=== PATIENT | female | born 1960 | race American Indian/Alaskan Native ===

== ENCOUNTER 2018-02-04 21:43 | Observation (INO) | payer MEDICARE ==
[2018-02-04 22:46] LABS: Basophils % (Auto) 0.3 % (0.0-1.8); Eosinophils % (Auto) 0.1 % (0.0-4.3); Hematocrit 39.9 % (30.3-42.9); Lymphocytes # (Auto) 2.5 K/mm3 (1.2-5.4); Lymphocytes % (Auto) 23.7 % (13.4-35.0); Mean Corpuscular HGB Conc 33 % (30-34); Mean Corpuscular Hemoglobin 27 pg (28-32); Mean Corpuscular Volume 83 fl (79-97); Monocytes # (Auto) 0.8 K/mm3 (0.0-0.8); Monocytes % (Auto) 7.9 % (0.0-7.3); Platelet Count 173 K/mm3 (140-440); Red Blood Count 4.78 M/mm3 (3.65-5.03); Red Cell Distribution Width 14.9 % (13.2-15.2)
[2018-02-04 22:57] LABS: INR 0.92 (0.87-1.13); Partial Thromboplastin Time 30.2 Sec. (24.2-36.6)
[2018-02-04 23:02] LABS: BUN/Creatinine Ratio 8; Blood Urea Nitrogen 10 mg/dL (7-17); Calcium 9.3 mg/dL (8.4-10.2); Hemolysis Index 4
--- NOTE | 2018-02-04 23:16 | Cat Scan Report ---
FINAL REPORT EXAM: CT HEAD/BRAIN WO CON HISTORY: hypertenisive headache TECHNIQUE: CT head without contrast PRIORS: None. FINDINGS: No acute intra-axial or extra-axial hemorrhage is identified. There is no evidence of midline shift or mass effect. The ventricles and sulci are within normal limits. Noguera-white matter differentiation is intact. No acute parenchymal abnormalities seen. Bony calvarium is grossly intact. Visualized portions of the mastoids and paranasal sinuses are unremarkable. IMPRESSION: Negative CT head
--- NOTE | 2018-02-04 23:19 | XRay Report ---
FINAL REPORT EXAM: XR CHEST 1V AP HISTORY: Chest Pain TECHNIQUE: upright single view chest PRIORS: None. FINDINGS: Cardiac and mediastinal contours are unremarkable. No focal pulmonary infiltrate is identified. No pleural fluid collection seen. Pulmonary vasculature is unremarkable. IMPRESSION: Negative single-view chest
[2018-02-04] MEDS ORDERED: KEPPRA 500 MG/NS 0.82% 100 ML 500 MG/100 ML BAG IV ONE (23:41)
[2018-02-04] MEDS ORDERED: CARDENE 50 MG in NACL 0.9% 250ML 230 ML IV SCH (23:45)
--- NOTE | 2018-02-04 23:54 | History and Physical Report ---
History of Present Illness Date of examination: 02/05/18 History of present illness: 57-year-old woman with a history of hypertension, seizure, asthma comes emergency room because she felt dizzy, agitated, she knew that her blood pressure was high. Also complaining of chest pain in the epigastric area which she described as a dull sensation, intermittent in nature lasting l 1 minute, intensity 5/10, no radiation, cannot identify exacerbating or relieving factors. Admits to nausea, no shortness of breath, diaphoresis or palpitation. She had a stress test one year ago which was negative. Patient stated that she got some bad news today which helped to shoot her pressure out of control. Patient states she is compliant with medications Review of systems Constitutional: no weight loss, chills Ears, eyes, nose, mouth and throat: no nasal congestion, no nasal discharge, no sinus pressure, no vision change, no red eye. Neck: No neck pain or rigidity. Cardiovascular: no chest pain, palpitations Respiratory: No cough, shortness of breath Gastrointestinal: no abdominal pain, hematochezia Genitourinary : no dysuria, frequency , no hematuria Musculoskeletal: no joint swelling or muscle ache Integumentary: no rash, no pruritis Neurological: no parathesias, no numbness, no focal weakness Endocrine: no cold or heat intolerance, no polyuria or polydipsia Hematologic/Lymphatic: no easy bruising, no easy bleeding, no gland swelling Allergic/Immunologic: no urticaria, no angioedema. PAST MEDICAL HISTORY: hypertension, seizure, asthma PAST SURGICAL HISTORY: None SOCIAL HISTORY: Denies alcohol, tobacco, drugs FAMILY HISTORY: Hypertension Medications and Allergies Allergies Allergy/AdvReac Type Severity Reaction Status Date / Time Seafood Allergy Anaphylaxis Uncoded 02/04/18 22:14 Home Medications Medication Instructions Recorded Confirmed Last Taken Type Amlodipine Besylate [Norvasc] 10 mg PO DAILY 02/05/18 02/05/18 Unknown History Esomeprazole Magnesium [Nexium] 40 mg PO DAILY 02/05/18 02/05/18 Unknown History Losartan [Cozaar] 100 mg PO QDAY 02/05/18 02/05/18 Unknown History Montelukast Sodium 10 mg PO QHS 02/05/18 02/05/18 Unknown History Rosuvastatin Calcium [Crestor] 20 mg PO DAILY 02/05/18 02/05/18 Unknown History levETIRAcetam [Keppra TAB] 1,000 mg PO BID 02/05/18 02/05/18 Unknown History Active Meds: Active Medications Levetiracetam (Keppra 500 Mg/Ns 0.82% 100 Ml) 500 mg in 100 mls @ 400 mls/hr IV ONCE ONE Stop: 02/04/18 23:55 Nicardipine HCl 50 mg/ Sodium (Chloride) 250 mls @ 25 mls/hr IV TITR KEI; Protocol Exam - Physical Exam Narrative exam: Gen. appearance: Patient lying in bed, no apparent distress HEENT: Normocephalic, atraumatic, pupils equally round and reactive to light, extraocular movement intact, and no sclericterus,. No JVD or thyromegaly or nodule,neck supple, no carotid bruit ,mucous membranes moist, no exudate or erythema Heart: S1, S2, regular rate and rhythm Lungs: Clear to auscultation bilaterally, breathing comfortable Abdomen: Positive bowel sounds, nontender, nondistended, no organomegaly Extremity: No edema, cyanosis, clubbing Skin: No rash, nodules, warm, dry Neuro: Oriented 3, cranial nerves II-12 intact, speech is fluent, motor and sensory intact - Constitutional Vitals: Temp Pulse Resp BP Pulse Ox 99.1 F 87 20 211/131 99 02/04/18 22:07 02/04/18 22:10 02/04/18 22:14 02/04/18 22:10 02/04/18 22:14 Results - Labs CBC & Chem 7: 02/04/18 22:38 02/04/18 22:38 Labs: Abnormal lab results 02/04/18 02/04/18 Range/Units 22:38 22:38 MCH 27 L (28-32) pg Levy % (Auto) 7.9 H (0.0-7.3) % Potassium 3.4 L (3.6-5.0) mmol/L Glucose 102 H (65-100) mg/dL - Imaging and Cardiology EKG: image reviewed Chest x-ray: image reviewed CT Scan - head: report reviewed Assessment and Plan Assessment Hypertensive urgency Chest pain secondary to #1 Hypokalemia Plan Admit to medicine Continue Cardene drip Check cardiac enzymes, consult critical care, cardiology DVT prophylaxis, start aspirin, pain medication Replete potassium
--- NOTE | 2018-02-05 00:05 | Emergency Department Report ---
ED General Adult HPI - General Chief complaint: High BP Stated complaint: BOND,ELEV BP Time Seen by Provider: 02/04/18 22:11 Source: patient, EMS Mode of arrival: Stretcher Limitations: No Limitations - History of Present Illness Initial comments: Patient is a 57-year-old female past medical history of hypertension who is presenting with elevated blood pressure. Patient states that earlier today she says she just didn't feel right. Patient states she felt some chest discomfort or headache shortness of breath. Patient says that the chest discomfort was a tight sensation chest. There is no radiation. Patient denies any cough cold congestion and fevers chills nausea vomiting at this time. Patient assumed that she was about to have a seizure but did not. Patient takes Keppra for seizures. Patient states that she's been taking her blood pressure medicines however she missed 1 or 2 doses last several days. Patient did state that she did not take her blood pressure medicines today. Severity scale (0 -10): 7 - Related Data Allergies Allergy/AdvReac Type Severity Reaction Status Date / Time Seafood Allergy Anaphylaxis Uncoded 02/04/18 22:14 ED Review of Systems ROS: Stated complaint: BOND,ELEV BP Other details as noted in HPI Comment: All other systems reviewed and negative ED Past Medical Hx - Past Medical History Previous Medical History?: Yes Hx Hypertension: Yes Hx Seizures: Yes Hx Asthma: Yes - Surgical History Past Surgical History?: Yes Additional Surgical History: hysterectomy - Social History Smoking Status: Never Smoker ED Physical Exam - General Limitations: No Limitations General appearance: alert, in no apparent distress - Head Head exam: Present: atraumatic, normocephalic - Eye Eye exam: Present: normal appearance - ENT ENT exam: Present: mucous membranes moist - Neck Neck exam: Present: normal inspection - Respiratory Respiratory exam: Present: normal lung sounds bilaterally. Absent: respiratory distress - Cardiovascular Cardiovascular Exam: Present: regular rate, normal rhythm. Absent: systolic murmur, diastolic murmur, rubs, gallop - GI/Abdominal GI/Abdominal exam: Present: soft, normal bowel sounds - Extremities Exam Extremities exam: Present: normal inspection - Back Exam Back exam: Present: normal inspection - Neurological Exam Neurological exam: Present: alert, oriented X3 - Psychiatric Psychiatric exam: Present: normal affect, normal mood - Skin Skin exam: Present: warm, dry, intact, normal color. Absent: rash ED Course Vital Signs 02/04/18 02/04/18 02/04/18 21:54 21:56 22:00 Temperature Pulse Rate 93 H 91 H Respiratory 20 14 Rate Blood Pressure 216/137 O2 Sat by Pulse 98 97 Oximetry 02/04/18 02/04/18 02/04/18 22:06 22:07 22:10 Temperature 99.1 F Pulse Rate 91 H 87 87 Respiratory 24 20 16 Rate Blood Pressure 216/137 211/131 211/131 O2 Sat by Pulse 98 97 99 Oximetry 02/04/18 22:14 Temperature Pulse Rate Respiratory 20 Rate Blood Pressure O2 Sat by Pulse 99 Oximetry ED Medical Decision Making - Lab Data Result diagrams: 02/04/18 22:38 02/04/18 22:38 Lab Results 02/04/18 02/04/18 02/04/18 Range/Units 22:37 22:38 22:38 WBC 10.5 (4.5-11.0) K/mm3 RBC 4.78 (3.65-5.03) M/mm3 Hgb 13.0 (10.1-14.3) gm/dl Hct 39.9 (30.3-42.9) % MCV 83 (79-97) fl MCH 27 L (28-32) pg MCHC 33 (30-34) % RDW 14.9 (13.2-15.2) % Plt Count 173 (140-440) K/mm3 Lymph % (Auto) 23.7 (13.4-35.0) % [place] % (Auto) 7.9 H (0.0-7.3) % Eos % (Auto) 0.1 (0.0-4.3) % Baso % (Auto) 0.3 (0.0-1.8) % Lymph # 2.5 (1.2-5.4) K/mm3 [place] # 0.8 (0.0-0.8) K/mm3 Eos # 0.0 (0.0-0.4) K/mm3 Baso # 0.0 (0.0-0.1) K/mm3 Seg Neutrophils % 68.0 (40.0-70.0) % Seg Neutrophils # 7.1 (1.8-7.7) K/mm3 PT 12.8 (12.2-14.9) Sec. INR 0.92 (0.87-1.13) APTT 30.2 (24.2-36.6) Sec. Sodium 141 (137-145) mmol/L Potassium 3.4 L (3.6-5.0) mmol/L Chloride 102.5 (98-107) mmol/L Carbon Dioxide 25 (22-30) mmol/L Anion Gap 17 mmol/L BUN 10 (7-17) mg/dL Creatinine 1.2 (0.7-1.2) mg/dL Estimated GFR 46 ml/min BUN/Creatinine Ratio 8 % Glucose 102 H (65-100) mg/dL Calcium 9.3 (8.4-10.2) mg/dL Troponin T < 0.010 (0.00-0.029) ng/mL - EKG Data -: EKG Interpreted by Me - EKG Data Interpretation: other (EKG shows sinus rhythm at 68 and normal axis normal intervals there's LVH present is no ST segment elevation or depressions. Interpretation at [id number]) - Radiology Data Radiology results: report reviewed T of the head without contrast shows no acute process. X-ray of the chest shows no acute process. - Medical Decision Making Patient is a 57-year-old female who presented with chest discomfort headache and elevated blood pressure. Patient was given IV push dose of hydralazine which did not help the pressure. Patient was started on a Cardene drip. Patient is first cardiac enzymes within normal limits. Patient will be admitted to the hospitalist service and Dr. Benitez for serial enzymes and blood pressure control. Critical Care Time: Yes Critical care time in (mins) excluding proc time.: 30 Critical care attestation.: If time is entered above; I have spent that time in minutes in the direct care of this critically ill patient, excluding procedure time. ED Disposition Clinical Impression: Hypertensive urgency, malignant Chest pain Qualifiers: Chest pain type: unspecified Qualified Code(s): R07.9 - Chest pain, unspecified Disposition: OP ADMIT IP TO THIS HOSP Is pt being admited?: Yes Does the pt Need Aspirin: No Condition: Stable Instructions: Chest Pain (ED) Referrals: PRIMARY CARE, [Primary Care Provider] - 3-5 Days
[2018-02-05] MEDS ORDERED: SODIUM CHLORIDE FLUSH SYRINGE 10 ML IV PRN (00:19)
[2018-02-05] MEDS ORDERED: PERCOCET 5/325 PO PRN (00:19)
[2018-02-05] MEDS ORDERED: TYLENOL PO PRN (00:19)
[2018-02-05] MEDS ORDERED: ZOFRAN IV PRN (00:19)
[2018-02-05] MEDS ORDERED: K-DUR PO ONE ×2 (00:54→01:05)
[2018-02-05 01:37] LABS: Creatine Kinase MB 1.5 ng/mL (0.0-4.0)
--- NOTE | 2018-02-05 06:37 | Consultation ---
History of Present Illness Consult date: 02/05/18 Requesting physician: ALIN RAY History of present illness: 57-year-old woman with a history of hypertension, seizure, asthma comes emergency room because she felt dizzy, agitated, she knew that her blood pressure was high. Also complaining of chest pain in the epigastric area which she described as a dull sensation, intermittent in nature lasting l 1 minute, intensity 5/10, no radiation, cannot identify exacerbating or relieving factors. Admits to nausea, no shortness of breath, diaphoresis or palpitation. She had a stress test one year ago which was negative. Patient stated that she got some bad news today and she did not take her blood pressure medications today however she states she is generally compliant with medications. At presentation to the ED her BP was 216/137. She was started on an infusion for blood pressure control and has been admitted to the ICU for hemodynamic monitoring, blood pressure control and titration of nicardipine infusion. I have been consulted for critical care management. Patient was seen and examined. Vitals, labs, medications, chart and imaging were reviewed. Review of systems Constitutional: no weight loss, chills Ears, eyes, nose, mouth and throat: no nasal congestion, no nasal discharge, no sinus pressure, no vision change, no red eye. Neck: No neck pain or rigidity. Cardiovascular: no chest pain, palpitations Respiratory: No cough, shortness of breath Gastrointestinal: no abdominal pain, hematochezia Genitourinary : no dysuria, frequency , no hematuria Musculoskeletal: no joint swelling or muscle ache Integumentary: no rash, no pruritis Neurological: no parathesias, no numbness, no focal weakness Endocrine: no cold or heat intolerance, no polyuria or polydipsia Hematologic/Lymphatic: no easy bruising, no easy bleeding, no gland swelling Allergic/Immunologic: no urticaria, no angioedema. PAST MEDICAL HISTORY: hypertension, seizure, asthma PAST SURGICAL HISTORY: None SOCIAL HISTORY: Denies alcohol, tobacco, drugs FAMILY HISTORY: Hypertension Medications and Allergies Allergies Allergy/AdvReac Type Severity Reaction Status Date / Time Seafood Allergy Anaphylaxis Uncoded 02/04/18 22:14 Home Medications Medication Instructions Recorded Confirmed Last Taken Type Amlodipine Besylate [Norvasc] 10 mg PO DAILY 02/05/18 02/05/18 Unknown History Esomeprazole Magnesium [Nexium] 40 mg PO DAILY 02/05/18 02/05/18 Unknown History Losartan [Cozaar] 100 mg PO QDAY 02/05/18 02/05/18 Unknown History Montelukast Sodium 10 mg PO QHS 02/05/18 02/05/18 Unknown History Rosuvastatin Calcium [Crestor] 20 mg PO DAILY 02/05/18 02/05/18 Unknown History levETIRAcetam [Keppra TAB] 1,000 mg PO BID 02/05/18 02/05/18 Unknown History Active Meds: Active Medications Acetaminophen (Tylenol) 650 mg PO Q4H PRN PRN Reason: Pain MILD(1-3)/Fever >100.5/BOND Enoxaparin Sodium (Lovenox) 40 mg SUB-Q QDAY@1000 KEI Nicardipine HCl 50 mg/ Sodium (Chloride) 250 mls @ 25 mls/hr IV TITR KEI; Protocol Last Titration: 02/05/18 01:46 Dose: 10 mg/hr, 50 mls/hr Ondansetron HCl (Zofran) 4 mg IV Q8H PRN PRN Reason: Nausea And Vomiting Oxycodone/Acetaminophen (Percocet 5/325) 1 tab PO Q6H PRN PRN Reason: Pain, Moderate (4-6) Sodium Chloride (Sodium Chloride Flush Syringe 10 Ml) 10 ml IV BID KEI Sodium Chloride (Sodium Chloride Flush Syringe 10 Ml) 10 ml IV PRN PRN PRN Reason: LINE FLUSH Physical Examination Vital signs: Vital Signs Pulse Ox 98 02/04/18 21:54 Gen. appearance: Patient lying in bed, no apparent distress HEENT: Normocephalic, atraumatic, pupils equally round and reactive to light, extraocular movement intact, and no sclericterus,. No JVD or thyromegaly or nodule,neck supple, no carotid bruit ,mucous membranes moist, no exudate or erythema Heart: S1, S2, regular rate and rhythm Lungs: Clear to auscultation bilaterally, breathing comfortable Abdomen: Positive bowel sounds, nontender, nondistended, no organomegaly Extremity: No edema, cyanosis, clubbing Skin: No rash, nodules, warm, dry Neuro: Oriented 3, cranial nerves II-12 intact, speech is fluent, motor and sensory intact Results - Laboratory Findings CBC and BMP: 02/04/18 22:38 02/04/18 22:38 PT/INR, D-dimer PT 12.8 Sec. (12.2-14.9) 02/04/18 22:37 INR 0.92 (0.87-1.13) 02/04/18 22:37 Abnormal lab findings: Abnormal Labs 02/04/18 02/04/18 22:38 22:38 MCH 27 L [place] % (Auto) 7.9 H Potassium 3.4 L Glucose 102 H Assessment and Plan Malignant hypertension Chest pain -Admit ICU -Continue nicardipine infusion Serial troponins and EKG 2D echocardiogram VTE prophylaxis Resume oral antihypertensives and wean off nicardipine infusion Educated and counselled on the need for medical compliance.
[2018-02-05 06:42] LABS: Creatine Kinase MB 2.2 ng/mL (0.0-4.0)
--- NOTE | 2018-02-05 09:15 | Consultation ---
<YENI BAUGH - Last Filed: 02/05/18 09:25> History of Present Illness Consult date: 02/05/18 Requesting physician: ALIN RAY Consult reason: chest pain History of present illness: The pt is a 57 YO female with a past medical history significant for HTN, HLP, seizure disorder and asthma. She is previously unknown to our practice. She presented with complaints of dizziness, nausea and chest pain. She reports that she was having a disagreement with her daughter yesterday when she noted the onset of her symptoms and could tell that her blood pressure was high. She describes her chest pain as a constant, nonexertional, nonradiating midsternal pressure. Following arrival in ED, her BPs were noted to be significantly elevated and she was placed on cardene gtt. She reports that following initiation of cardene gtt, her chest pain resolved. She reports that she usually experiences these symptoms when her BPs are high. She denies any SOB, palpitations, vomiting, diaphoresis or syncope. She denies any prior cardiac issues. She reports that she underwent stress testing and echo at [facility] in 10/2017 for the same symptoms and these tests were normal to her knowledge. Past History Past Medical History: hypertension, hyperlipidemia, seizures Past Surgical History: No surgical history Social history: lives with family. denies: smoking, alcohol abuse, prescription drug abuse Medications and Allergies Allergies Allergy/AdvReac Type Severity Reaction Status Date / Time Seafood Allergy Anaphylaxis Uncoded 02/04/18 22:14 Home Medications Medication Instructions Recorded Confirmed Last Taken Type Amlodipine Besylate [Norvasc] 10 mg PO DAILY 02/05/18 02/05/18 Unknown History Esomeprazole Magnesium [Nexium] 40 mg PO DAILY 02/05/18 02/05/18 Unknown History Losartan [Cozaar] 100 mg PO QDAY 02/05/18 02/05/18 Unknown History Montelukast Sodium 10 mg PO QHS 02/05/18 02/05/18 Unknown History Rosuvastatin Calcium [Crestor] 20 mg PO DAILY 02/05/18 02/05/18 Unknown History levETIRAcetam [Keppra TAB] 1,000 mg PO BID 02/05/18 02/05/18 Unknown History Active Meds: Active Medications Acetaminophen (Tylenol) 650 mg PO Q4H PRN PRN Reason: Pain MILD(1-3)/Fever >100.5/BOND Enoxaparin Sodium (Lovenox) 40 mg SUB-Q QDAY@1000 KEI Nicardipine HCl 50 mg/ Sodium (Chloride) 250 mls @ 25 mls/hr IV TITR KEI; Protocol Last Titration: 02/05/18 05:30 Dose: 0 mg/hr, 0 mls/hr Ondansetron HCl (Zofran) 4 mg IV Q8H PRN PRN Reason: Nausea And Vomiting Oxycodone/Acetaminophen (Percocet 5/325) 1 tab PO Q6H PRN PRN Reason: Pain, Moderate (4-6) Sodium Chloride (Sodium Chloride Flush Syringe 10 Ml) 10 ml IV BID KEI Sodium Chloride (Sodium Chloride Flush Syringe 10 Ml) 10 ml IV PRN PRN PRN Reason: LINE FLUSH Review of Systems Constitutional: no weight loss, no weight gain, no fever, no chills Ears, nose, mouth and throat: no ear pain, no nose pain, no sinus pressure, no sinus pain Cardiovascular: chest pain, lightheadedness, high blood pressure, no orthopnea, no palpitations, no rapid/irregular heart beat, no edema, no syncope, no shortness of breath, no dyspnea on exertion, no paroxysmal nocturnal dyspnea, no leg edema Respiratory: no cough, no shortness of breath, no dyspnea on exertion, no congestion, no wheezing, no pain on inspiration Gastrointestinal: nausea, no abdominal pain, no vomiting, no diarrhea, no constipation, no change in bowel habits Genitourinary Female: no pelvic pain, no flank pain, no dysuria, no urinary frequency, no urgency Musculoskeletal: no neck stiffness, no neck pain, no shooting arm pain, no arm numbness/tingling, no low back pain, no shooting leg pain, no leg numbness/ tingling, no redness of joints Integumentary: no rash, no pruritis, no redness, no sores, no wounds Neurological: seizures (last seizure was 1 month ago ), no head injury, no paralysis, no weakness, no parathesias, no numbness, no tingling, no syncope Psychiatric: no anxiety Endocrine: no cold intolerance, no heat intolerance Hematologic/Lymphatic: no easy bruising, no easy bleeding, no lymphadenopathy Allergic/Immunologic: no urticaria, no wheezing, no persistent infections Physical Examination Vital Signs Pulse Ox 98 02/04/18 21:54 General appearance: no acute distress HEENT: Positive: PERRL, Normocephaly, Mucus Membranes Moist Neck: Positive: neck supple, trachea midline Cardiac: Positive: Reg Rate and Rhythm, S1/S2 Lungs: Positive: clear to auscultation Neuro: Positive: Grossly Intact, Cranial Nerve 2-12 Intact Abdomen: Positive: Soft. Negative: Tender Skin: Positive: Clear. Negative: Rash, Wound Musculoskeletal: No Fluid Collection, No Pain, Normal Range of Motion Extremities: Absent: edema Results 02/04/18 22:38 02/04/18 22:38 Cardiac Enzymes 02/05/18 02/05/18 Range/Units 00:57 05:11 CK-MB (CK-2) 1.5 2.2 (0.0-4.0) ng/mL Coagulation 02/04/18 Range/Units 22:37 PT 12.8 (12.2-14.9) Sec. INR 0.92 (0.87-1.13) APTT 30.2 (24.2-36.6) Sec. CBC 02/04/18 Range/Units 22:38 WBC 10.5 (4.5-11.0) K/mm3 RBC 4.78 (3.65-5.03) M/mm3 Hgb 13.0 (10.1-14.3) gm/dl Hct 39.9 (30.3-42.9) % Plt Count 173 (140-440) K/mm3 Lymph # 2.5 (1.2-5.4) K/mm3 [place] # 0.8 (0.0-0.8) K/mm3 Eos # 0.0 (0.0-0.4) K/mm3 Baso # 0.0 (0.0-0.1) K/mm3 Comprehensive Metabolic Panel 02/04/18 Range/Units 22:38 Sodium 141 (137-145) mmol/L Potassium 3.4 L (3.6-5.0) mmol/L Chloride 102.5 (98-107) mmol/L Carbon Dioxide 25 (22-30) mmol/L BUN 10 (7-17) mg/dL Creatinine 1.2 (0.7-1.2) mg/dL Glucose 102 H (65-100) mg/dL Calcium 9.3 (8.4-10.2) mg/dL - Imaging and Cardiology EKG: report reviewed, image reviewed EKG interpretations - Telemetry EKG Rhythm: Sinus Rhythm - EKG Sinus rhythms and dysrhythmias: sinus rhythm Chamber hypertrophy or enlargement: left ventricular hypertro Repolarization changes or abnormalities: early repolarization due to LVH Assessment and Plan Assessment: Chest pain, atypical - ECG with no acute ischemic changes; Liz negative for AMI ; currently resolved Hypertensive urgency - improving Dizziness - resolved HLP Seizure disorder - last seizure 1 month ago per pt report; cont Keppra Hypokalemia H/o asthma Plan: Resume home anti-hypertensive regimen, including amlodipine 10mg daily and losartan 100mg daily. Request medical records from [facility] - pt reports that she underwent stress testing and echo at [facility] in 10/2017 and these tests were normal to her knowledge. Repeat BMP. Currently stable cardiac status. Cardene gtt weaned off. Pt may tx out of ICU to telemetry from cardiology standpoint. The patient has been seen in conjunction with Dr. Jimenez who agrees with the assessment and plan of care. <SOL JIMENEZ M - Last Filed: 02/05/18 09:35> Medications and Allergies Active Meds: Active Medications Acetaminophen (Tylenol) 650 mg PO Q4H PRN PRN Reason: Pain MILD(1-3)/Fever >100.5/BOND Amlodipine Besylate (Norvasc) 10 mg PO DAILY KEI Enoxaparin Sodium (Lovenox) 40 mg SUB-Q QDAY@1000 KEI Losartan Potassium (Cozaar) 100 mg PO QDAY KEI Ondansetron HCl (Zofran) 4 mg IV Q8H PRN PRN Reason: Nausea And Vomiting Oxycodone/Acetaminophen (Percocet 5/325) 1 tab PO Q6H PRN PRN Reason: Pain, Moderate (4-6) Sodium Chloride (Sodium Chloride Flush Syringe 10 Ml) 10 ml IV BID KEI Sodium Chloride (Sodium Chloride Flush Syringe 10 Ml) 10 ml IV PRN PRN PRN Reason: LINE FLUSH Physical Examination Vital Signs Pulse Ox 98 02/04/18 21:54 Results 02/04/18 22:38 02/04/18 22:38 Cardiac Enzymes 02/05/18 02/05/18 Range/Units 00:57 05:11 CK-MB (CK-2) 1.5 2.2 (0.0-4.0) ng/mL Coagulation 02/04/18 Range/Units 22:37 PT 12.8 (12.2-14.9) Sec. INR 0.92 (0.87-1.13) APTT 30.2 (24.2-36.6) Sec. CBC 02/04/18 Range/Units 22:38 WBC 10.5 (4.5-11.0) K/mm3 RBC 4.78 (3.65-5.03) M/mm3 Hgb 13.0 (10.1-14.3) gm/dl Hct 39.9 (30.3-42.9) % Plt Count 173 (140-440) K/mm3 Lymph # 2.5 (1.2-5.4) K/mm3 [place] # 0.8 (0.0-0.8) K/mm3 Eos # 0.0 (0.0-0.4) K/mm3 Baso # 0.0 (0.0-0.1) K/mm3 Comprehensive Metabolic Panel 02/04/18 Range/Units 22:38 Sodium 141 (137-145) mmol/L Potassium 3.4 L (3.6-5.0) mmol/L Chloride 102.5 (98-107) mmol/L Carbon Dioxide 25 (22-30) mmol/L BUN 10 (7-17) mg/dL Creatinine 1.2 (0.7-1.2) mg/dL Glucose 102 H (65-100) mg/dL Calcium 9.3 (8.4-10.2) mg/dL Assessment and Plan Add K+ sparing diuretic to medication regimen
[2018-02-05] MEDS ORDERED: LOVENOX SUB-Q SCH (10:00)
[2018-02-05 11:21] LABS: BUN/Creatinine Ratio 10; Blood Urea Nitrogen 9 mg/dL (7-17); Calcium 9.6 mg/dL (8.4-10.2); Hemolysis Index 16
[2018-02-05] MEDS: LOVENOX SUB-Q SCH (15:31)
[2018-02-05] MEDS: NORVASC PO SCH (15:32)
[2018-02-05] MEDS: COZAAR PO SCH (15:32)
[2018-02-05] MEDS: MAXZIDE-25 PO SCH (15:33)
[2018-02-05] MEDS: SODIUM CHLORIDE FLUSH SYRINGE 10 ML IV SCH ×2 (15:34→23:31)
--- NOTE | 2018-02-05 17:03 | Progress Note ---
Assessment and Plan Hypertensive urgency--Improved Chest pain secondary to #1 Hypokalemia---Supplemented Plan Cardene drip--D/c'd Antihypertensives optimized cardiac enzymes Negative, critical care and cardiology consult appreciated DVT prophylaxis, start aspirin, pain medication Replete potassium Subjective Date of service: 02/05/18 Principal diagnosis: Hypertensive Emergency Interval history: Doing well No Chest pain Objective - Constitutional Vitals: Vital Signs - 12hr 02/05/18 02/05/18 02/05/18 05:10 05:20 05:30 Temperature Pulse Rate 89 79 78 Respiratory 19 11 L 13 Rate Blood Pressure 124/79 124/79 122/78 O2 Sat by Pulse 95 92 88 Oximetry 02/05/18 02/05/18 02/05/18 05:40 05:50 06:00 Temperature Pulse Rate 75 91 H 76 Respiratory 16 17 17 Rate Blood Pressure 122/78 119/70 110/74 O2 Sat by Pulse 95 97 Oximetry 02/05/18 02/05/18 02/05/18 06:10 06:20 06:30 Temperature Pulse Rate 82 77 75 Respiratory 17 17 17 Rate Blood Pressure 110/74 114/74 121/88 O2 Sat by Pulse 93 94 93 Oximetry 02/05/18 02/05/18 02/05/18 06:40 06:50 07:00 Temperature Pulse Rate 76 77 73 Respiratory 16 20 18 Rate Blood Pressure 121/88 148/90 137/90 O2 Sat by Pulse 94 90 90 Oximetry 02/05/18 02/05/18 02/05/18 07:10 07:20 07:30 Temperature Pulse Rate 68 63 66 Respiratory 15 16 16 Rate Blood Pressure 137/90 137/90 139/92 O2 Sat by Pulse 96 93 93 Oximetry 02/05/18 02/05/18 02/05/18 07:40 07:50 08:00 Temperature 97.8 F Pulse Rate 63 57 L 56 L Respiratory 18 16 15 Rate Blood Pressure 139/92 139/92 134/77 O2 Sat by Pulse 97 96 95 Oximetry 02/05/18 02/05/18 02/05/18 08:10 08:20 08:30 Temperature Pulse Rate 56 L 73 63 Respiratory 16 17 20 Rate Blood Pressure 134/77 134/77 134/77 O2 Sat by Pulse 96 97 97 Oximetry 05/15/18 05/15/18 05/15/18 08:40 08:50 09:00 Temperature Pulse Rate 58 L 60 76 Respiratory 18 15 13 Rate Blood Pressure 156/90 156/90 135/111 O2 Sat by Pulse 96 96 96 Oximetry 02/05/18 02/05/18 02/05/18 09:10 09:20 09:32 Temperature Pulse Rate 62 70 Respiratory 17 17 Rate Blood Pressure 135/111 135/111 157/109 O2 Sat by Pulse 96 95 Oximetry 02/05/18 02/05/18 02/05/18 09:40 09:50 10:00 Temperature Pulse Rate Respiratory Rate Blood Pressure 157/109 157/109 135/111 O2 Sat by Pulse 94 93 Oximetry 02/05/18 02/05/18 02/05/18 10:10 10:20 10:30 Temperature Pulse Rate Respiratory Rate Blood Pressure 161/102 161/102 161/102 O2 Sat by Pulse 95 95 93 Oximetry 02/05/18 02/05/18 02/05/18 10:37 10:40 10:50 Temperature Pulse Rate 65 Respiratory 9 L Rate Blood Pressure 176/102 176/102 O2 Sat by Pulse 99 98 93 Oximetry 02/05/18 02/05/18 02/05/18 11:00 11:10 11:20 Temperature Pulse Rate 62 71 61 Respiratory 12 18 14 Rate Blood Pressure 176/108 176/108 176/108 O2 Sat by Pulse 93 95 97 Oximetry 02/05/18 02/05/18 02/05/18 11:30 11:40 11:50 Temperature Pulse Rate 56 L 56 L 72 Respiratory 14 13 11 L Rate Blood Pressure 176/108 158/91 158/91 O2 Sat by Pulse 95 95 96 Oximetry 02/05/18 02/05/18 02/05/18 12:00 12:10 12:20 Temperature 98.0 F Pulse Rate 63 73 57 L Respiratory 18 17 14 Rate Blood Pressure 158/100 158/100 158/100 O2 Sat by Pulse 92 91 94 Oximetry 02/05/18 02/05/18 02/05/18 12:30 12:40 12:50 Temperature Pulse Rate 60 58 L 55 L Respiratory 11 L 15 15 Rate Blood Pressure 150/99 150/99 150/99 O2 Sat by Pulse 92 90 93 Oximetry 02/05/18 02/05/18 02/05/18 13:00 13:10 13:20 Temperature Pulse Rate 68 72 67 Respiratory 15 14 15 Rate Blood Pressure 153/96 153/96 153/96 O2 Sat by Pulse 91 89 Oximetry 02/05/18 02/05/18 02/05/18 13:30 13:40 13:50 Temperature Pulse Rate 60 55 L 60 Respiratory 17 9 L 12 Rate Blood Pressure 166/101 166/101 166/101 O2 Sat by Pulse 96 98 95 Oximetry 02/05/18 02/05/18 02/05/18 14:00 14:10 14:20 Temperature Pulse Rate 65 61 68 Respiratory 10 L 18 19 Rate Blood Pressure 172/105 166/101 172/105 O2 Sat by Pulse 76 L 93 74 L Oximetry 02/05/18 02/05/18 02/05/18 14:31 14:41 14:51 Temperature Pulse Rate 75 59 L 59 L Respiratory 17 14 8 L Rate Blood Pressure 168/96 168/96 168/96 O2 Sat by Pulse 86 96 92 Oximetry 02/05/18 02/05/18 02/05/18 15:01 15:11 15:21 Temperature Pulse Rate 51 L 51 L 51 L Respiratory 15 11 L 11 L Rate Blood Pressure 172/88 172/88 172/88 O2 Sat by Pulse 95 96 98 Oximetry 02/05/18 02/05/18 15:32 15:56 Temperature 97.7 F Pulse Rate 51 L Respiratory Rate Blood Pressure 172/88 O2 Sat by Pulse Oximetry General appearance: Present: no acute distress, well-nourished - EENT Eyes: PERRL, EOM intact ENT: hearing intact, clear oral mucosa Ears: bilateral: normal - Neck Neck: supple, normal ROM - Respiratory Respiratory effort: normal Respiratory: bilateral: CTA - Breasts Breasts: normal - Cardiovascular Rhythm: regular Heart Sounds: Present: S1 & S2. Absent: gallop, rub Extremities: no ischemia, pulses intact, No edema, normal color, Full ROM - Gastrointestinal General gastrointestinal: Present: soft, non-tender, non-distended, normal bowel sounds - Genitourinary Female genitourinary: normal - Integumentary Integumentary: clear, warm, dry - Musculoskeletal Musculoskeletal: 1, strength equal bilaterally - Neurologic Neurologic: moves all extremities - Psychiatric Psychiatric: memory intact, appropriate mood/affect, intact judgment & insight - Labs CBC & Chem 7: 02/06/18 05:06 02/06/18 05:06 Labs: Abnormal lab results 02/04/18 02/04/18 Range/Units 22:38 22:38 MCH 27 L (28-32) pg [place] % (Auto) 7.9 H (0.0-7.3) % Potassium 3.4 L (3.6-5.0) mmol/L Glucose 102 H (65-100) mg/dL
[2018-02-05] MEDS ORDERED: APRESOLINE PO PRN (21:44)
[2018-02-05] MEDS: APRESOLINE IV PRN (23:31)
[2018-02-06 06:00] LABS: Basophils % (Auto) 0.3 % (0.0-1.8); Eosinophils % (Auto) 0.1 % (0.0-4.3); Hematocrit 40.5 % (30.3-42.9); Hemoglobin 13.7 gm/dl (10.1-14.3); Lymphocytes # (Auto) 1.6 K/mm3 (1.2-5.4); Lymphocytes % (Auto) 16.7 % (13.4-35.0); Mean Corpuscular HGB Conc 34 % (30-34); Mean Corpuscular Hemoglobin 28 pg (28-32); Mean Corpuscular Volume 83 fl (79-97); Monocytes # (Auto) 0.7 K/mm3 (0.0-0.8); Platelet Count 181 K/mm3 (140-440); Red Blood Count 4.88 M/mm3 (3.65-5.03); Red Cell Distribution Width 15.1 % (13.2-15.2)
[2018-02-06 06:06] LABS: Calcium 9.6 mg/dL (8.4-10.2)
--- NOTE | 2018-02-06 09:15 | Progress Note ---
Assessment and Plan Chest pain, atypical Hypertensive urgency - improved Dizziness - resolved Sinus bradycardia - asymptomatic HLP Seizure disorder Hypokalemia H/o asthma -Educated and counselled on the need for medical compliance. -Continue with antihypertensives -continue with keppra for seizure disorder -weight loss and lifestyle modifications discussed. -Discharge planning Subjective Date of service: 02/06/18 Principal diagnosis: Hypertensive urgency, atypical chest pain, sizure disorder Interval history: Seen and examined. Vitals, labs, medications, chart reviewed. No acute overnight events. Denies any headaches, no chest pain, no fevers or chills. No nausea or vomiting. No seizures or aura. States she feels much better Objective - Exam Narrative Exam: Gen. appearance: Patient lying in bed, no apparent distress HEENT: Normocephalic, atraumatic, pupils equally round and reactive to light, extraocular movement intact, and no sclericterus,. No JVD or thyromegaly or nodule,neck supple, no carotid bruit ,mucous membranes moist, no exudate or erythema Heart: S1, S2, regular rate and rhythm Lungs: Clear to auscultation bilaterally, breathing comfortable Abdomen: Positive bowel sounds, nontender, nondistended, no organomegaly Extremity: No edema, cyanosis, clubbing Skin: No rash, nodules, warm, dry Neuro: Oriented 3, cranial nerves II-12 intact, speech is fluent, motor and sensory intact Vital Signs - 12hr 02/05/18 02/05/18 02/05/18 21:16 21:19 22:00 Temperature 98.5 F 98.5 F Pulse Rate 59 L 50 L Respiratory 20 20 Rate Blood Pressure 209/111 194/97 Blood Pressure [Right] O2 Sat by Pulse 95 Oximetry 02/05/18 02/05/18 02/06/18 23:31 23:32 00:14 Temperature 98.1 F Pulse Rate 60 96 H Respiratory 20 18 Rate Blood Pressure 209/111 162/98 Blood Pressure [Right] O2 Sat by Pulse 97 Oximetry 02/06/18 02/06/18 02/06/18 05:12 07:43 08:24 Temperature 97.9 F 97.6 F 97.6 F Pulse Rate 69 80 88 Respiratory 18 18 18 Rate Blood Pressure 145/87 123/83 Blood Pressure 123/83 [Right] O2 Sat by Pulse 97 98 98 Oximetry Constitutional: no acute distress Eyes: non-icteric ENT: oropharynx moist Neck: supple, no lymphadenopathy, no JVD Effort: normal Ascultation: Bilateral: clear Cardiovascular: regular rate and rhythm Gastrointestinal: normoactive bowel sounds, soft, non-tender, non-distended Integumentary: normal Extremities: no cyanosis, no edema, pulses normal, no ischemia or petechiae Neurologic: normal mental status, non-focal exam, pupils equal and round, CN II- XII normal, motor strength normal and Psychiatric: mood appropriate, affect normal CBC and BMP: 02/06/18 05:06 02/06/18 05:06 ABG, PT/INR, D-dimer: PT/INR, D-dimer PT 12.8 Sec. (12.2-14.9) 02/04/18 22:37 INR 0.92 (0.87-1.13) 02/04/18 22:37 Abnormal lab findings: Abnormal Labs 02/04/18 02/04/18 02/06/18 22:38 22:38 05:06 MCH 27 L [place] % (Auto) 7.9 H Seg Neutrophils % 75.9 H Potassium 3.4 L BUN Creatinine Glucose 102 H 02/06/18 05:06 MCH [place] % (Auto) Seg Neutrophils % Potassium BUN 18 H Creatinine 1.3 H Glucose
[2018-02-06] MEDS: LOVENOX SUB-Q SCH (10:12)
[2018-02-06] MEDS: COZAAR PO SCH (10:12)
[2018-02-06] MEDS: MAXZIDE-25 PO SCH (10:13)
--- NOTE | 2018-02-06 10:45 | Progress Note ---
Assessment and Plan Assessment: Chest pain, atypical - ECG with no acute ischemic changes; Liz negative for AMI ; currently resolved Hypertensive urgency - improved Dizziness - resolved Sinus bradycardia - asymptomatic HLP Seizure disorder - last seizure 1 month ago per pt report; cont Keppra Hypokalemia - improved H/o asthma Plan: [facility] records reviewed - pt underwent echo in 03/2017 which showed EF 55 -60%, mod LVH, pseudonormalization. Pt underwent treadmill MPI stress test in 05/2015 which was negative for ischemia , EF 43%. Currently stable cardiac status. Cont present cardiac regimen. Suspect pt's chest pain was secondary to hypertensive urgency. Given resolution of chest pain, ECG with NAF and Liz negative for AMI, no current indication for repeat ischemic evaluation at this time. Stress MPI can be considered as OP. Pt may discharge home from cardiology standpoint. Recommend follow up in our office with Dr. Bermudez within 2 weeks of hospital discharge ([phone]). The patient has been seen in conjunction with Dr. Bermudez who agrees with the assessment and plan of care. Subjective Date of service: 02/06/18 Principal diagnosis: HTN; cp Interval history: pt resting comfortably in bed, no current cardiac complaints. states she is ready to go home. tele reviewed - pt in sinus bradycardia with HR 50s-60s. Objective Last Vital Signs Temp 97.6 F 02/06/18 08:24 Pulse 88 02/06/18 08:24 Resp 18 02/06/18 08:24 BP 123/83 02/06/18 08:24 Pulse Ox 98 02/06/18 08:24 - Physical Examination General: No Apparent Distress HEENT: Positive: PERRL, Normocephaly, Mucus Membranes Moist Neck: Positive: neck supple, trachea midline Cardiac: Positive: S1/S2, Bradycardia Lungs: Positive: clear to auscultation Neuro: Positive: Grossly Intact, Cranial Nerve 2-12 Intact Abdomen: Positive: Soft. Negative: Tender Skin: Positive: Clear. Negative: Rash, Wound Musculoskeletal: No Fluid Collection, No Pain, Normal Range of Motion Extremities: Absent: edema - Labs and Meds CBC 02/06/18 Range/Units 05:06 WBC 9.8 (4.5-11.0) K/mm3 RBC 4.88 (3.65-5.03) M/mm3 Hgb 13.7 (10.1-14.3) gm/dl Hct 40.5 (30.3-42.9) % Plt Count 181 (140-440) K/mm3 Lymph # 1.6 (1.2-5.4) K/mm3 [place] # 0.7 (0.0-0.8) K/mm3 Eos # 0.0 (0.0-0.4) K/mm3 Baso # 0.0 (0.0-0.1) K/mm3 Comprehensive Metabolic Panel 02/05/18 02/06/18 Range/Units 10:51 05:06 Sodium 141 139 (137-145) mmol/L Potassium 4.3 D 4.4 (3.6-5.0) mmol/L Chloride 104.0 101.4 (98-107) mmol/L Carbon Dioxide 23 26 (22-30) mmol/L BUN 9 18 H (7-17) mg/dL Creatinine 0.9 1.3 H (0.7-1.2) mg/dL Glucose 92 (65-100) mg/dL Calcium 9.6 9.6 (8.4-10.2) mg/dL - Imaging and Cardiology EKG: report reviewed, image reviewed - Telemetry EKG Rhythm: Sinus Bradycardia - EKG Sinus rhythms and dysrhythmias: sinus rhythm Chamber hypertrophy or enlargement: left ventricular hypertro Repolarization changes or abnormalities: early repolarization due to LVH
[2018-02-06] MEDS: NORVASC PO SCH (11:04)
[2018-02-06] MEDS: SODIUM CHLORIDE FLUSH SYRINGE 10 ML IV SCH (11:05)
[2018-02-06] MEDS: APRESOLINE IV PRN (15:16)
[2018-02-06 15:18] VITALS: BP 162/92
--- NOTE | 2018-02-06 15:32 | Discharge Summary ---
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 Pt underwent treadmill MPI stress test in 05/2015 which was negative for ischemia , EF 43%. Currently stable cardiac status. Cont present cardiac regimen. Suspect pt's chest pain was secondary to hypertensive urgency. Given resolution of chest pain, ECG with NAF and Liz negative for AMI, no current indication for repeat ischemic evaluation at this time. Stress MPI can be considered as OP. Pt may discharge home . Recommend follow up in our office with Dr. Bermudez within 2 weeks of hospital discharge ([phone]). Disposition: - TO HOME OR SELFCARE Core Measure Documentation - Palliative Care Palliative Care/ Comfort Measures: Not Applicable - Core Measures Any of the following diagnoses?: none Exam - Constitutional Vitals: Temp Pulse Resp BP Pulse Ox 97.7 F 59 L 18 162/92 98 02/06/18 11:22 02/06/18 11:22 02/06/18 11:22 02/06/18 15:16 02/06/18 11:22 General appearance: Present: no acute distress, well-nourished - EENT Eyes: Present: PERRL ENT: hearing intact, clear oral mucosa - Neck Neck: Present: supple, normal ROM - Respiratory Respiratory effort: normal Respiratory: bilateral: CTA - Cardiovascular Heart rate: 78 Rhythm: regular Heart Sounds: Present: S1 & S2. Absent: rub, click - Extremities Extremities: no ischemia, pulses intact, pulses symmetrical, No edema Peripheral Pulses: within normal limits - Abdominal General gastrointestinal: Present: soft, non-tender, non-distended, normal bowel sounds Female genitourinary: Present: normal - Integumentary Integumentary: Present: clear, warm, dry - Musculoskeletal Musculoskeletal: gait normal, strength equal bilaterally - Psychiatric Psychiatric: appropriate mood/affect, intact judgment & insight - Neurologic Neurologic: CNII-XII intact, moves all extremities - Allied Health Allied health notes reviewed: nursing, case management Plan Activity: no restrictions Diet: low fat, low cholesterol, low salt Follow up with: PRIMARY CARE, [Primary Care Provider] - 3-5 Days MARA HUANG MD [Staff Physician] - 7 Days
== END 2018-02-06 18:32 | disposition home or self-care (01) ==
LOC: ED 21:43 → INTOOBSV 23:54 → CC1 23:54 → 4A 02-05 22:50
PROVIDERS: ADMIT Internal Medicine; ATTEND Internal Medicine
DX: I16.0 Hypertensive urgency (principal); E87.6 Hypokalemia; I10 Essential (primary) hypertension; J45.909 Unspecified asthma, uncomplicated; G40.909 Epilepsy, unspecified, not intractable, without status epilepticus; E78.5 Hyperlipidemia, unspecified; Z79.899 Other long term (current) drug therapy; Z90.710 Acquired absence of both cervix and uterus
CPT/HCPCS: 36415; 70450; 71045; 80048; 82550; 82553; 84484; 85025; 85610; 85730; 93005; 93010; 99291; G0378; J0360; J1650; J1953; J7050; 96372; 96374; 96375; 96376